=== PATIENT | female | born 1950 | race Caucasian/White ===

== ENCOUNTER 2016-09-23 16:47 | Inpatient (IN) | payer MEDICARE, MEDICAID, OTHER ==
[~2016-09-23] VITALS: Ht 182.9 cm; Wt 99.8 kg
[2016-09-23 18:30] VITALS: BP 168/93; PULSE 112; RESP 18; O2SAT 100
[2016-09-23] MEDS ORDERED: Alum-Mag Hydrox-Simeth 30 mL Suspension PO PRN (18:45)
[2016-09-23] MEDS ORDERED: Benzocaine-Menthol Lozenge 2/Pkg PO PRN (18:45)
[2016-09-23 20:19] LABS: Mean Corpuscular Hemoglobin 32.1 pg (27.0-35.0); Mean Corpuscular Volume 95.4 fL (81-100)
[2016-09-23] MEDS ORDERED: BUSP30TA2 PO (21:18)
[2016-09-23] MEDS ORDERED: CHOL200025 PO (21:19)
[2016-09-23] MEDS ORDERED: LEVO100T6 PO (21:20)
[2016-09-23] MEDS ORDERED: LITH300T26 PO ×2 (21:21→21:22)
[2016-09-23] MEDS ORDERED: OMEP20CA11 PO (21:22)
[2016-09-23] MEDS ORDERED: OXYB10TA6 PO (21:24)
[2016-09-23] MEDS ORDERED: PRAV10TA2 PO (21:25)
[2016-09-23] MEDS ORDERED: PREG100C PO (21:26)
[2016-09-23] MEDS ORDERED: QUET300T44 PO (21:33)
[2016-09-23] MEDS ORDERED: QUET200T PO (21:34)
[2016-09-23] MEDS ORDERED: DOCU-41 PO (21:35)
[2016-09-23] MEDS ORDERED: SENN1TAB90 PO (21:36)
--- NOTE | 2016-09-23 21:37 | NUR ---
ADMISSION NOTE Involuntary female admitted to unit @ 18:00 via stretcher from [facility] in [place]. She is IZAIAH'd on a 72-hr hold for grave disability. Pt. has a hx of bipolar disorder and lives independently, can typically grocery shop, drive, and care for herself but as of last Wednesday has been decompensating at home-- not showering, not eating, not sleeping, nonsensical, w/increased confusion and paranoia. ED records indicate she recently had an increase in Seroquel dosage and her Li level was 1.3 on 09/22. UA done on 09/22 was clear. Her current change in mentation is uncharacteristic for her, per ED records and her brother's report. V/S when arrived on unit were: 112 HR, 168/93 BP, 99.4 TEMP, 18 RR, 100% O2. She had received Ativan 2 mg an hr prior to arrival on unit. She was disorganized and incoherent during our assessment; rambling nonstop, nonsensical, unable to answer any questions or comply with staff's directions. She arrived in a loosened hospital gown opened in the back and was exposing herself, and could not dress herself in our hospital scrubs. Staff had to pull clothing onto her after much reassurance provided. She was fearful and paranoid to leave the multi-purp room where our admit interview was and finally agreed to hold staff's hands and was lead to her room. She toileted. Rang the call rubio many times. At one point she had squeezed an entire tube of toothpaste in her mouth. Allowed lab to draw blood work. She then rested in bed for the remainder of the shift. Medical hx: recent UTI April 2016, hypothyroid. Hx of acute cystitis.
--- NOTE | 2016-09-23 21:52 | NUR ---
OBSERVATIONS Pt arrived on unit at 1800. Pt was speaking rapidly in undecipherable, nonsensical sentences. Pt appeared very confused anxious and tremulous. Pt was unsteady upon standing and was assisted to her room by RNs. After pt was oriented to room and left to settle in, this MHA found the pt on her bed with a mouth full of toothpaste. Brought pt water to rinse out mouth after which she laid in bed to rest. Pt rested for the remainder of this MHA's shift. Maintained Q15 safety checks as directed.
--- NOTE | 2016-09-24 05:26 | NUR ---
nursing, nights, 11-7 s- i don't answer questions. i don't want anyone near me. o- slept [id number], used call light at 2330. most words unintelligible with some clear statements. slept [id number] and is currently lying quietly in bed. assessed q 15 minutes. a- interrupted/inadequate sleep, has difficulty expressing her needs, no apparent physical distress. p- monitor behavior/emotional state, quality, times and amount of sleep, use and effect of medication. gary
--- NOTE | 2016-09-24 05:30 | NUR ---
NOC OBS Pt called staff but unable to voice needs. Stated her mouth was dry but when asked what she would like to drink she stated she did not want to be asked question/would not answer them. Speech mumbled, disjointed and incoherent at times. Did drink fluids when presented with them but asked for staff to leave her room as she did not want people near her. Asleep [id number],100-345. Pt observed every 15 minutes as ordered.
[2016-09-24 12:16] VITALS: BP 154/84; PULSE 106
[2016-09-24] MEDS ORDERED: Tolterodine ER 2 mg ER24 Capsule PO SCH (14:04)
--- NOTE | 2016-09-24 14:14 | HP ---
[address] [address] HISTORY AND PHYSICAL PATIENT: CASE RENO : 1950 MR#: [id number] ADMIT: 09/23/2016 JOB ID: [id number] DATE OF SERVICE: 09/24/2016 IDENTIFICATION: The patient is a 66-year-old, single white female, currently living independently with her cat in an apartment. She has a car and drives. She is on Social Security disability for bipolar mood disorder. She has a supportive brother Naseem in the [place] area, and she lives in [place]. REASON FOR ADMISSION: Client transferred from [facility] ED on a 72-hour involuntary treatment hold for a rapid decline in her mental state with symptoms of babar and psychosis. HISTORY OF PRESENT ILLNESS: The patient presents for evaluation and treatment of babar and psychosis. I met with her for a 60-minute evaluation, and reviewed course and records kept by both [facility] in [place] and [facility] staff. Client's main issue is struggling with long-term bipolar mood disorder. The condition is chronic but she had a rapid decline per her brother over the past week with increasing symptoms of disorganized thought, paranoid thought and social isolation. She was refusing to eat and drink water and when she came to the emergency department, was severely dehydrated. At present, the condition is of a severe intensity manifesting with symptoms of distractibility, racing thoughts, poor sleep, paranoia, appearing to respond to internal stimuli, talking to herself and being unaware of the decline in her ability to attend to her activities of daily living. All the above symptoms are made worse by poor sleep and by not taking her medications regularly. She is currently presenting with significant emotional liability and cognitive deficits. She has impairment in judgment, insight, coping and reality testing. PSYCHIATRIC REVIEW OF SYSTEMS: Positive for babar and psychosis. Negative for depression, trauma, or substance abuse. PAST MEDICAL HISTORY: MEDICATIONS: 1. Seroquel reportedly increased from 200 to 300 mg at night. 2. BuSpar 30 twice a day. 3. Lyrica 100, 3 times a day. 4. Yetter 300 in the morning, 450 at night. 5. Levothyroxine 1 daily. 6. Omeprazole. 7. Oxybutynin. 8. Pravastatin. ALLERGIES: ABILIFY. ILLNESSES: Hypothyroidism, gastroesophageal reflux disease, fibromyalgia, glaucoma. FAMILY MEDICAL HISTORY: Unknown. PAST PSYCHIATRIC HISTORY: Client has been involuntarily detained four different times. For bipolar, she is followed by [facility] in [facility]. PSYCHOSOCIAL: Born in [place], [place]. She graduated from high school and attended four years at [employer] and getting a BA in education. HISTORY OF TRAUMA: Client denies. DRUG AND ALCOHOL: Client denies. WORK HISTORY: Client has been unable to work and has had mental illness for decades. LETHALITY: Client denies. SUICIDAL IDEATION: Previous suicide attempt. RELATIONSHIP HISTORY: Single. YAZIDI: [employer]. LEGAL HISTORY: None. PHYSICAL EXAMINATION: Vital signs: 154/84, pulse 106, respirations 16, afebrile. LABORATORY DATA: CBC with elevated WBC at 12.1. Yetter level 1.3. Liver electrolytes normal. MENTAL STATUS EXAMINATION: The client appeared neatly dressed but had poor eye contact. Her behavior was withdrawn. Attitude aloof and detached. Speech soft, monotone and mumbling. Mood scared. Affect congruent with high intensity. No emotional liability. Thought process, client unable to relate a coherent history. Her thought process is disorganized, and she appears to be responding to internal stimuli at times. Thought content significant for being confused about why she is here. She felt that she was taking her meds and doing well and was unaware of the rapid decline that her brother described with isolation, paranoia and disoriented thoughts. She was somewhat suspicious during my evaluation but did not endorse any overt paranoid or grandiose delusions. Client was alert and oriented to person, place, and date. She spoke at length about the president. Her memory was mildly impaired. Attention and concentration mildly impaired. Insight and judgment impaired. Impulse control highly contained but rigid. She is having a difficult time handling impulses of fear and hunger. Reality testing is moderately impaired. Competence to handle current stress, is currently being overwhelmed. IMPRESSION: The patient is a 66-year-old, single white female with what sounds like bipolar mood disorder for decades that has been relatively well managed. For unclear reasons, her brother reported a rapid decline in her thought process and ability to attend to activities of daily living over the past week. As a result, she has not been eating, not been drinking and when she came to the ED, was severely dehydrated and required IV fluids. Despite having care at the [facility] ED, she was continued to be nonsensical in her thought, appearing to respond to internal stimuli and showing multiple symptoms of babar including distractibility, racing thoughts, poor sleep and poor appetite. There is a reference in the chart that her Seroquel was increased from 200 to 300 recently and that this might be part of the confusion. I was unable to identify any particular stressor that might have been giving the patient difficulty. She was detained on a 72-hour involuntary treatment hold at [facility], and I will file for a [address] DIAGNOSES: AXIS I Bipolar mood disorder, manic, with psychotic features. AXIS II Defer. AXIS III 1. Hypothyroidism. 2. Gastroesophageal reflux disease. 3. Fibromyalgia. 4. Glaucoma. AXIS IV Unknown. AXIS V Global Assessment of Functioning equal to 30. PLAN: Recommend client be admitted to our unit and be provided with a high degree of safety through the structure and active adult engagement she will receive here. Will have her participate in one-to-one unit and group activities focused on improving her coping skills and reality-based thinking. I will work with her with her psych meds. In the meantime, we will decrease Seroquel to 200 mg h.s., continue Lyrica at 100 three times a day, decrease BuSpar to 10 twice a day and add Klonopin 0.5 mg b.i.d. for fairly severe anxiety with a heart rate over 100. Again, client on a 72-hour involuntary treatment hold. Will attempt to get a [address]
--- NOTE | 2016-09-24 18:52 | NUR ---
Nursing Note Days [id number] S. I am feeling dizzy and wobbly. I am feeling very irritable. O. Patient tremulous, holding to staff when walking. Requesting word search puzzles. Response delayed/hesitant with responses. Denies SI/HI, depression, anxiety. A. Appears anxious, reports fearful do to noise/activity on unit. P. Continue to monitor for response to treatment. 15 min checks for safety. Follow plan of care.
--- NOTE | 2016-09-24 19:09 | NUR ---
Bag Shop Worker/Counselor: S: "I need someone to look after my cat, please call my brother." O: Patient only slept 4.25+ hours last night as per staff. She denies S/I and H/I. She also denies auditory and visual hallucinations. When asked her mood, patient stated, "Jumpy." A: Patient is cooperative, withdrawn, fearful disorganized, responding to internal stimuli, confused. P: Follow care plan, coordinate out-patient providers, monitor behavior.
--- NOTE | 2016-09-24 19:19 | NUR ---
Obs Dayshift Pt is restless, slightly pressured speech, hopeless, helpless, confused, mumbling. Pt is able to get up on her own and walk down the gorman when staff is not around to assist. Pt is sitting out in the milieu during free times, but goes back into her room when peers get to loud and active. Pt has good ADL's, Good meals
[2016-09-24] MEDS: BusPIRone 15 mg Dividose Tablet PO SCH (20:46)
--- NOTE | 2016-09-25 04:57 | NUR ---
Nursing Noc s/o- has appeared to sleep after 2129 until 2329, and back to sleep at 0030 during q 15 minute assessments. Spent short time out in DR watching movie quietly but not able to converse with service writer. a- no apparent distress. p- monitor behavior/emotional state, quality, times and amount of sleep, use and effect of medication.
[2016-09-25] MEDS ORDERED: OXYBUTYNIN CHLORIDE 10 MG PO SCH (08:30)
[2016-09-25] MEDS: Pantoprazole 40 mg ER24 Tablet PO SCH (08:51)
[2016-09-25] MEDS: BusPIRone 15 mg Dividose Tablet PO SCH ×2 (08:52→21:16)
[2016-09-25] MEDS: Tolterodine ER 2 mg ER24 Capsule PO SCH (08:52)
[2016-09-25 10:00] VITALS: BP 121/77; PULSE 97; RESP 18
--- NOTE | 2016-09-25 12:31 | NUR ---
Nursing: Day shift: S: I am so upset with all this noise. I have pain and need something for it. I can't rate it. I just feel discomfort. I had a strange dream before I came here. They must have thought it was an emergency to transfer me from [place] to [place]. It's the Bipolar, I think. I'm depressed I had to come here. O: Yenny has spent most of the shift in her room. Isolates to keep from away from peer interactions in the dining room that she finds stressful. She comes out for meals. Smiles readily. Speaks in a coherent manner. Thoughts seem organized and logical. Makes witty responses and slightly laughs. ("I make others laugh but inside I am not laughing.") Denies suicidal ideation. PRN medication: At 1200, Milk of Magnesia 10 ml for constipation, Tylenol 650 mg for generalized pain (unable to rate), and Clonazepam 0.5 mg for anxiety. Evaluation: MOM resulted in bowel movement. Tylenol: "just a bit better, maybe," Clonazepam: 'I feel that the my anxiety is being helped by the medicine." A: Anxious. Isolative. Generalized pain. Thoughts do not seem disorganized today. Addendum: 09/25/16 at 1325 by NATALIIA TOLEDO RN Amended: Links added.
--- NOTE | 2016-09-25 14:28 | PCM.PNPSY ---
Subjective Date of Service Sep 25, 2016 Subjective I spent 30 minutes both reviewing treatment plan with clinical team, interviewing the patient and providing supportive/educational psychotherapy. I spent more than 50% of the time counseling the patient. I reviewed the treatment plan with the patient and discussed options available including the potential risks, benefits and side effects. Yenny reports a marked improvement mood but she is very anxious about the degree of emotional tension on the unit. We talked about different self-care strategies she could use to minimize her exposure to other patients who may be going through a turbulent emotional time. Staff reports that she has been active and participating well in one-to-one unit and group activities. She slept 8 hours and denies depression or psychotic symptoms review. Her thought processing is much improved today. She denies medication side effects. Patient was able to identify her medications and what they were used to treat. Current Medications Current Medications Buspirone HCl 10 mg BID PO Last administered on 09/25/16 08:52; Admin Dose 10 MG; Start 09/24/16 at 20:30 Levothyroxine Sodium 100 mcg DAILY PO Last administered on 09/25/16 08:52; Admin Dose 100 MCG; Start 09/25/16 at 08:30 Lavina Carbonate 300 mg MORNING PO Last administered on 09/25/16 08:52; Admin Dose 300 MG; Start 09/25/16 at 08:30 Lavina Carbonate 450 mg HS PO Last administered on 09/24/16 20:48; Admin Dose 450 MG; Start 09/24/16 at 21:00 Pantoprazole 40 mg 0630 PO Last administered on 09/25/16 08:51; Admin Dose 40 MG; Start 09/25/16 at 06:30 Pravastatin Sodium 10 mg HS PO Last administered on 09/24/16 20:46; Admin Dose 10 MG; Start 09/24/16 at 21:00 Pregabalin 100 mg TID PO Last administered on 09/25/16 08:52; Admin Dose 100 MG ; Start 09/24/16 at 14:30 Quetiapine Fumarate 200 mg HS PO Last administered on 09/24/16 20:45; Admin Dose 200 MG; Start 09/24/16 at 21:00 Tolterodine Tartrate 2 mg MORNING PO Last administered on 09/25/16 08:52; Admin Dose 2 MG; Start 09/25/16 at 08:30 Mental Status Exam Appearance: Neat/well groomed Attitude: Pleasant, Cooperative Behavior: Overtly anxious Affect: Labile Mood: Anxious, Fearful Thought Process/Associations: Other (disorganized) Speech Production: Normal Speech Rate: Normal Speech Articulation: Normal Thought Content: Negativistic Danger to Self/Suicidal Ideati: None Danger to Others: None Consciousness: Hyper-vigilant Orientation: Person, Place, Date, Situation Memory: Grossly Intact Estimate Intellectual Function: Average Basis for IQ estimate: Awareness current events, Word use/vocabulary, Educational history Attention/Concentration & Cogn: Impaired Insight: Limited Judgement: Limited Result Diagram: 09/23/16200109/23/162001 Mental Health Plan The patient is a 66-year-old, single white female struggling with bipolar mood disorder for decades. Recently she has been well managed. For unclear reasons, her brother reported a rapid decline in her thought process and ability to attend to activities of daily living over the past week. As a result, she had not been eating, not been drinking and when she came to the ED, was severely dehydrated and required IV fluids. Despite having care at the [facility] ED, she continued to be nonsensical in her thought, appearing to respond to internal stimuli and showing multiple symptoms of babar including distractibility, racing thoughts, poor sleep and poor appetite. She was transferred to our unit for evaluation and treatment. There is a reference in the chart that her Seroquel was increased from 200 to 300 recently and that this might be part of the confusion. I was unable to identify any particular stressor that might have been giving the patient difficulty [place] AXIS I Bipolar mood disorder, manic, with psychotic features. AXIS II Defer. AXIS III 1. Hypothyroidism. 2. Gastroesophageal reflux disease. 3. Fibromyalgia. 4. Glaucoma. AXIS IV Unknown. AXIS V Global Assessment of Functioning equal to 30. Medications Treatments Patient is being provided with a high degree of safety through the structure and active adult engagement. We will focus on developing improved coping skills and identifying stressors that may have led to current episode. We will attempt to: Integrate into therapeutic groups, milieu and individual therapy. Maintain in a closely monitored and structured unit Provide low-stimulation environment Obtain collateral data to assist in treatment planning Assess degree of lability of affect and impulse control Complete safety plan Decrease frequency of relapse and need for re-hospitalization Denies thoughts of harm to self and/or others Establish a consistent sleep pattern Medication effective in stabilization of mood and/or thought process Reduce the risk of imminent harm to self and/or others by providing a safe environment Tolerates medication without side effects Patient will be on the following psychiatric medications: Seroquel to 200 mgh.s. Lyrica at 100 three times a day BuSpar to 10 twice a day Klonopin 0.5 mg b.i.d Address patient's legal status Patient is on a 72 hour involuntary treatment hold that was continued until next Wednesday by the defense Patient will be given the opportunity to talk to her university relations vice president and the windshield installer Wednesday Disposition: Home Franklin Stroud MD Sep 25, 2016 14:28
--- NOTE | 2016-09-25 19:02 | NUR ---
Pageant Director/Counselor: S: "I feel like pulling my hair out because of some of these patients." O: Patient slept 7 hours last night as per staff. She denies S/I and H/I. She also denies auditory and visual hallucinations. Depression is "not really." Anxiety is "a little bit." When asked her mood, patient stated, "Still jumpy." A: Patient is cooperative, withdrawn, fearful, a little less disorganized, fair insight, fair judgment. P: Follow care plan, coordinate out-patient providers.
[2016-09-25] MEDS: LORazepam 2 mg Tablet PO PRN (21:19)
--- NOTE | 2016-09-25 21:58 | NUR ---
Observations 0900 to 2130 Pt affect and mood was flat, emotional, isolative, withdrawn and fearful. Pt appears to be preoccupied. Pt speech and eye contact was ok. Pt attended meals in D.R. and ate approximately 75% of his meals. Pt maintained behavior throughout the shift. Pt spent a majority of the shift in her room due to being scared of her peers. Pt was polite and cooperative. Pt watched a little bit og TV during the day. Pt declined going in group room to do arts and crafts. Pt declined to participate in unit activities. Pt was observed every 15 minutes throughout the shift as ordered.
--- NOTE | 2016-09-25 22:51 | NUR ---
Nurses Note Evening Patient has been extremely anxious and fearful on the unit returning to her room in tears often. "I'm scared,it's too loud here."Patient responds to support. Will maintain q 15min. checks for safety,support. Addendum: 09/25/16 at 2310 by STEPHENIE KEYES RN Amended: Links added.
--- NOTE | 2016-09-26 06:06 | NUR ---
Nursing Note 7pm to 7am Optician Apprentice Dispensing Pt very anxious at start of shift due to loud outbursts of peers on the unit. she reported " I came here to relax and I can't . I am very afraid". Pt reports racing thoughts and anxiety 03/09. Pt given Ativan 2mg po prn with HS Meds. Order obtained for Latanoprost eye drops which pt takes at home for glaucoma. Pt slept soundly throughout the night. Monitored pt with q15 minute checks for safety, location and accountability.
[2016-09-26] MEDS: Pantoprazole 40 mg ER24 Tablet PO SCH (07:33)
[2016-09-26] MEDS: BusPIRone 15 mg Dividose Tablet PO SCH ×2 (07:34→20:40)
[2016-09-26] MEDS: Tolterodine ER 2 mg ER24 Capsule PO SCH (07:35)
[2016-09-26 10:11] VITALS: BP 104/73; PULSE 101; RESP 16
[2016-09-26] MEDS: Magnesium Hydroxide 10 mL Oral Concentration PO PRN (10:16)
--- NOTE | 2016-09-26 11:53 | PCM.PNPSY ---
Subjective Date of Service Sep 26, 2016 Subjective I spent 30 minutes both reviewing treatment plan with clinical team, interviewing the patient and providing supportive/educational psychotherapy. I spent more than 50% of the time counseling the patient. I reviewed the treatment plan with the patient and discussed options available including the potential risks, benefits and side effects. Yenny reports continued improvement mood but she is still anxious about the degree of emotional tension on the unit. We reviewed different self-care strategies she could use to minimize her exposure to other patients who may be going through a turbulent emotional time. Staff reports that she has been active and participating well in one-to-one unit and group activities. She slept 7 hours and denies depression or psychotic symptoms review. Her thought processing is much improved today. She denies medication side effects. Patient was able to identify her medications and what they were used to treat. Current Medications Current Medications Buspirone HCl 10 mg BID PO Last administered on 09/26/16 07:34; Admin Dose 10 MG; Start 09/24/16 at 20:30 Latanoprost 1 drop HS BOTH_EYES Last administered on 09/26/16 07:33; Admin Dose 1 DROP; Start 09/26/16 at 00:18 Levothyroxine Sodium 100 mcg DAILY PO Last administered on 09/26/16 07:35; Admin Dose 100 MCG; Start 09/25/16 at 08:30 [place] Carbonate 300 mg MORNING PO Last administered on 09/26/16 07:35; Admin Dose 300 MG; Start 09/25/16 at 08:30 [place] Carbonate 450 mg HS PO Last administered on 09/25/16 21:17; Admin Dose 450 MG; Start 09/24/16 at 21:00 Pantoprazole 40 mg 0630 PO Last administered on 09/26/16 07:33; Admin Dose 40 MG; Start 09/25/16 at 06:30 Pravastatin Sodium 10 mg HS PO Last administered on 09/25/16 21:18; Admin Dose 10 MG; Start 09/24/16 at 21:00 Pregabalin 100 mg TID PO Last administered on 09/26/16 07:35; Admin Dose 100 MG ; Start 09/24/16 at 14:30 Quetiapine Fumarate 200 mg HS PO Last administered on 09/25/16 21:19; Admin Dose 200 MG; Start 09/24/16 at 21:00 Tolterodine Tartrate 2 mg MORNING PO Last administered on 09/26/16t 07:35; Admin Dose 2 MG; Start 09/25/16 at 08:30 Mental Status Exam Vital Signs Vital Signs Date Time Temp Pulse Resp B/P Pulse Ox O2 Delivery O2 Flow Rate FiO2 09/26/16 10:11 36.8 101 16 104/73 Appearance: Neat/well groomed Attitude: Pleasant, Cooperative Behavior: Overtly anxious Affect: Well Modulated/Appropriate, Flat Mood: Anxious Thought Process/Associations: Goal Directed Speech Production: Normal Speech Rate: Normal Speech Articulation: Normal Thought Content: Negativistic Danger to Self/Suicidal Ideati: None Danger to Others: None Consciousness: Hyper-vigilant Orientation: Person, Place, Date, Situation Memory: Grossly Intact Estimate Intellectual Function: Average Basis for IQ estimate: Awareness current events, Word use/vocabulary, Educational history Attention/Concentration & Cogn: Impaired Insight: Limited Judgement: Limited Result Diagram: 09/23/16200109/23/162001 Mental Health Plan The patient is a 66-year-old, single white female struggling with bipolar mood disorder for decades. Recently she has been well managed. For unclear reasons, her brother reported a rapid decline in her thought process and ability to attend to activities of daily living over the past week. As a result, she had not been eating, not been drinking and when she came to the ED, was severely dehydrated and required IV fluids. Despite having care at the [facility] ED, she continued to be nonsensical in her thought, appearing to respond to internal stimuli and showing multiple symptoms of babar including distractibility, racing thoughts, poor sleep and poor appetite. She was transferred to our unit for evaluation and treatment. There is a reference in the chart that her Seroquel was increased from 200 to 300 recently and that this might be part of the confusion. I was unable to identify any particular stressor that might have been giving the patient difficulty Yenny appears to be tolerating medications well today 09/26/2016. She appears to be making gradual steady progress. [place] AXIS I Bipolar mood disorder, manic, with psychotic features. AXIS II Defer. AXIS III 1. Hypothyroidism. 2. Gastroesophageal reflux disease. 3. Fibromyalgia. 4. Glaucoma. AXIS IV Unknown. AXIS V Global Assessment of Functioning equal to 35. Medications Treatments Patient is being provided with a high degree of safety through the structure and active adult engagement. We will focus on developing improved coping skills and identifying stressors that may have led to current episode. We will attempt to: Integrate into therapeutic groups, milieu and individual therapy. Maintain in a closely monitored and structured unit Provide low-stimulation environment Obtain collateral data to assist in treatment planning Assess degree of lability of affect and impulse control Complete safety plan Decrease frequency of relapse and need for re-hospitalization Denies thoughts of harm to self and/or others Establish a consistent sleep pattern Medication effective in stabilization of mood and/or thought process Reduce the risk of imminent harm to self and/or others by providing a safe environment Tolerates medication without side effects Patient will be on the following psychiatric medications: Seroquel to 200 mgh.s. Lyrica at 100 three times a day BuSpar to 10 twice a day Change Klonopin to 0.25 mg b.i.d Address patient's legal status Patient is on a 72 hour involuntary treatment hold that was continued until next Wednesday by the defense Patient will be given the opportunity to talk to her boatwright and the trolley collector Wednesday Disposition: Franklin Peterson MD Sep 26, 2016 11:53
--- NOTE | 2016-09-26 14:06 | NUR ---
Dietitian Assistant./ c.m. S.:"I'm trying to have a better day." O.: met with pt. to discuss her progress. She slept "better" last night "but I had sleeping aid because there was a lot of commotion yesterday in the evening. She denied SI/HI, denied AH/VH or paranoid/delusional thoughts. She rated depression at 4-5/10 - "it's hard to be in a place where people are in control of my life." She complained about feeling restless and anxious - "I'm very itchy for go, go, go. It's hard to sit. I want to move all the time." She was in and out of her room sitting or talking to a selective female peer. Laborer [employer] encouraged pt. to speak with MD about her restlessness. A.: pt. is cooperative, pleasant, looks very restless. P.: monitor behavior, follow care plan.
--- NOTE | 2016-09-26 16:23 | NUR ---
Nursing Dayshift: S: "It's just so loud on this unit that I don't think I can get any better." O: Patient in bed resting much of the shift. States she stays in her room due to the above comment. Out for meals and snacks with a good appetite. Talkative on approach. Smiles during interaction. Patient's brother visited. Both stated having a good visit. Admits to "high" anxiety today. Depression "more anxiety than depression." Denies harmful thoughts and hallucinations. A: Isolative. Pleasant on approach. P: CPOC. Monitor mood and behavior.
[2016-09-26] MEDS: LORazepam 2 mg Tablet PO PRN (20:47)
--- NOTE | 2016-09-27 04:48 | NUR ---
ROSITA OBS Pt was on unit including watching TV some this evening. She was out for evening group but did not want to participate or comment due to fear of peers on unit. Able make needs known and voice concerns. Asleep at 2215. Pt observed every 15 minutes as ordered.
--- NOTE | 2016-09-27 05:37 | NUR ---
nursing, nights, 11-7 s/o- has appeared to sleep after 2214 during q 15 minute assessments. a- no apparent distress. p- monitor behavior/emotional state, quality, times and amount of sleep, use and effect of medication. gary
[2016-09-27] MEDS: Pantoprazole 40 mg ER24 Tablet PO SCH (06:39)
[2016-09-27] MEDS: Tolterodine ER 2 mg ER24 Capsule PO SCH (09:02)
[2016-09-27] MEDS: BusPIRone 15 mg Dividose Tablet PO SCH ×2 (09:02→21:08)
--- NOTE | 2016-09-27 11:34 | NUR ---
Nursing Dayshift: S: "I think I'm on my way to getting better." O: Patient verbalizing improved mood. Rates anxiety and depression both at a 5/10. Denies harmful thoughts and hallucinations. Brightens with interaction. Eating well at meals. Out of her room for meals and snacks. A: Pleasant during interaction. Alert. P: CPOC. Monitor mood and behavior.
[2016-09-27 12:25] VITALS: BP 114/75; PULSE 96; RESP 16
--- NOTE | 2016-09-27 13:18 | PCM.PNPSY ---
Subjective Date of Service Sep 27, 2016 Subjective I spent 30 minutes both reviewing treatment plan with clinical team, interviewing the patient and providing supportive/educational psychotherapy. I spent more than 50% of the time counseling the patient. I reviewed the treatment plan with the patient and discussed options available including the potential risks, benefits and side effects. Yenny reports continued improvement mood but she remains highly anxious and is triggered by the degree of emotional tension on the unit. We reviewed different self-care strategies she could use to minimize her exposure to other patients who may be going through a turbulent emotional time. Staff reports that she has been active and participating well in one-to-one unit and group activities. She slept 8 hours and denies depression or psychotic symptoms review. Her thought processing is much improved today. She denies medication side effects. Patient was able to identify her medications and what they were used to treat. Current Medications Current Medications Latanoprost 1 drop HS BOTH_EYES Last administered on 09/26/16t 20:42; Admin Dose 1 DROP; Start 09/26/16 at 00:18 Mental Status Exam Appearance: Neat/well groomed Attitude: Pleasant, Cooperative Behavior: Overtly anxious Affect: Well Modulated/Appropriate, Flat Mood: Anxious Thought Process/Associations: Goal Directed Speech Production: Normal Speech Rate: Normal Speech Articulation: Normal Thought Content: Negativistic Danger to Self/Suicidal Ideati: None Danger to Others: None Consciousness: Hyper-vigilant Orientation: Person, Place, Date, Situation Memory: Grossly Intact Estimate Intellectual Function: Average Basis for IQ estimate: Awareness current events, Word use/vocabulary, Educational history Attention/Concentration & Cogn: Impaired Insight: Limited Judgement: Limited Result Diagram: 09/23/16200109/23/16 2002 Mental Health Plan The patient is a 66-year-old, single white female struggling with bipolar mood disorder for decades. Recently she has been well managed. For unclear reasons, her brother reported a rapid decline in her thought process and ability to attend to activities of daily living over the past week. As a result, she had not been eating, not been drinking and when she came to the ED, was severely dehydrated and required IV fluids. Despite having care at the [facility] ED, she continued to be nonsensical in her thought, appearing to respond to internal stimuli and showing multiple symptoms of babar including distractibility, racing thoughts, poor sleep and poor appetite. She was transferred to our unit for evaluation and treatment. There is a reference in the chart that her Seroquel was increased from 200 to 300 recently and that this might be part of the confusion. I was unable to identify any particular stressor that might have been giving the patient difficulty Yenny appears to be tolerating medications well today 09/26/2016. She appears to be making gradual steady progress and will likely be ready for discharge Over the next 72 hours. [place] AXIS I Bipolar mood disorder, manic, with psychotic features. AXIS II Defer. AXIS III 1. Hypothyroidism. 2. Gastroesophageal reflux disease. 3. Fibromyalgia. 4. Glaucoma. AXIS IV Unknown. AXIS V Global Assessment of Functioning equal to 35. Medications Treatments Patient is being provided with a high degree of safety through the structure and active adult engagement. We will focus on developing improved coping skills and identifying stressors that may have led to current episode. We will attempt to: Integrate into therapeutic groups, milieu and individual therapy. Maintain in a closely monitored and structured unit Provide low-stimulation environment Obtain collateral data to assist in treatment planning Assess degree of lability of affect and impulse control Complete safety plan Decrease frequency of relapse and need for re-hospitalization Denies thoughts of harm to self and/or others Establish a consistent sleep pattern Medication effective in stabilization of mood and/or thought process Reduce the risk of imminent harm to self and/or others by providing a safe environment Tolerates medication without side effects Patient will be on the following psychiatric medications: Seroquel to 200 mgh.s. Lyrica at 100 three times a day BuSpar to 10 twice a day Klonopin to 0.25 mg b.i.d Address patient's legal status Patient is on a 72 hour involuntary treatment hold that was continued until next Wednesday by the defense Patient will be given the opportunity to talk to her hydrographic surveyor and the oncology technician Wednesday Disposition: Home Franklin Stroud MD Sep 27, 2016 13:18
--- NOTE | 2016-09-27 15:23 | NUR ---
Pc Tech./ c.m. S.:"I feel trapped... I'm a little jumpy. I feel very tired. I'm very paranoid. I feel like everybody is watching me." O.: met with pt. in a private room. She slept "very good" last night. She had "ok" visit with her brother but she "was disappointed because he didn't bring me what I wanted." She said that she had "a good conversation with him." She denied SI/HI, denied AH/VH. She felt paranoid about staff here and other peers. She believed that people were seeing her as "a child" - "I'm always acting childish and I don't know why." She felt "a little dopy" today and complained about dry mouth. She said that it was hard for her to focus. She rated depression at 3-4/10 - "it is same as when I came here". She rated anxiety at 4/10 at this time. She was in and out of her room sitting in a Dining room or TV area. She complained about unsteady gait. She is keeping to herself most of the time. A.: pt. is cooperative, quiet, looks sleepy. She has a flat affect and a slurred speech. P.: monitor behavior, monitor for safety, encourage pt. to participate in the unit activities; follow care plan.
--- NOTE | 2016-09-27 18:10 | NUR ---
Observations [id number] Pt was asleep upon start of shift. She appears to be anxious and nervous around other patients. She made a few comments to this marketing underwriter regarding how she doesn't like some individuals on the unit- "they just make me so nervous and upset." Pt spent the majority of her day in her room, resting and sleeping. She did make an effort to put herself out of her comfort zone, as noticed in the evening while waiting for dinner pt stated that "I came out here to try, I know it's not healthy for me to isolate all the time." Pt did not participate in any groups and was not very social. She attended all meals, eating 100%. Pt was observed every 15 minutes of shift as directed.
--- NOTE | 2016-09-28 06:28 | NUR ---
Nursing 7p-7a Pt has isolated in her room all shift. Took scheduled medication without difficulty. Adequate sleep with no noted distress or awakening per protocol. Total sleep 8+ hours.
[2016-09-28 09:04] VITALS: BP 137/77; PULSE 92; RESP 16
[2016-09-28] MEDS: BusPIRone 15 mg Dividose Tablet PO SCH ×2 (10:41→21:02)
[2016-09-28] MEDS: Pantoprazole 40 mg ER24 Tablet PO SCH (10:41)
[2016-09-28] MEDS: Tolterodine ER 2 mg ER24 Capsule PO SCH (10:41)
--- NOTE | 2016-09-28 17:10 | NUR ---
Observations [id number] Pt was asleep upon start of shift. Pt informed this personal lines underwriter that she struggles with incontinence and requested a new pair of scrubs. Pt declined depends or any incontinence items. She spent the majority of her day in her room, only coming out for meals. Pt ate 100% of meals. She did not attend groups. Pt made statements regarding her anxiety regarding court and that she feels ready to go home. Pt declines to shower here saying she'd rather shower at home. Pt also expressed concerns about other patients on the unit and feeling safe. Pt was observed every 15 minutes of shift as directed.
--- NOTE | 2016-09-28 20:48 | NUR ---
Nursing; Day shift: Yenny spent most of the day in her room, away from peers in the dining room whose behavior was intimidating. She was pleasant on approach. Is aware of upcoming court tomorrow. Took medication as scheduled. Requested and received Tylenol for generalized pain at 1833. Effectiveness to be assessed. No other complaints or requests.
[2016-09-28 21:04] LABS: APPEARANCE,URINE CLEAR (CLEAR,HAZY); COLOR,URINE STRAW (YELLOW)
[2016-09-28 21:07] LABS: OCCULT BLOOD,URINE NEGATIVE (NEGATIVE); UROBILINOGEN,URINE NORMAL (NORMAL)
--- NOTE | 2016-09-29 00:28 | PCM.PNPSY ---
Subjective Date of Service September 28, 2016 Subjective The patient reports plan to return to her home in [place]. She is still mystified by her decompensation and reports that she believes that she was medication adherent. "I had a really weird dream... with sparklies... then I was here." She still has difficulty formulating her thoughts and ideas. She reports her mood as discouraged. She states that she will return to have followup with Dr. Girffith. She denied side effects, but mild cogwheeling was noted in her left arm. Sleep: 8 hours Appetite: "hungry" Suicidal and homicidal ideation: denies Auditory hallucinations/Visual hallucinations: reports last on the day of admission. Other Psychotic Symptoms: disorganization as above. Anxiety: 02/07 Depression: 10/07 Current Medications Current Medications Benztropine Mesylate 1 mg HS PO Last administered on 09/28/16t 21:03; Admin Dose 1 MG; Start 09/28/16 at 21:00 Mental Status Exam Appearance: Neat/well groomed Attitude: Pleasant, Cooperative Behavior: Overtly anxious Affect: Restricted Mood: Dysthymic, Anxious Thought Process/Associations: Goal Directed, Other Speech Production: Normal Speech Rate: Normal Speech Articulation: Normal Thought Content: Negativistic Danger to Self/Suicidal Ideati: None Danger to Others: None Hallucinations: Auditory (Denies), Visual (Denies) Consciousness: Hyper-vigilant Orientation: Person, Place, Date, Situation Memory: Grossly Intact Estimate Intellectual Function: Average Basis for IQ estimate: Awareness current events, Word use/vocabulary, Educational history Attention/Concentration & Cogn: Impaired Insight: Limited Judgement: Limited Result Diagram: 09/23/16200109/23/16 2002 Mental Health Plan The patient is a 66-year-old, single white female with a reported history of bipolar disorder for decades that has been relatively well managed until recently. Her brother reported a rapid decline in her thought process and ability to attend to activities of daily living over the past week prior to admission. As a result, she has not been eating, not been drinking and when she came to the ED, was severely dehydrated and required IV fluids. Despite having care at the [facility] ED, she continued to be nonsensical in her thoughts, appearing to respond to internal stimuli and showing multiple symptoms of babar including distractibility, racing thoughts, poor sleep and poor appetite. There is a reference in the chart that her Seroquel was increased from 200 to 300. There were no clearly identifiable stressors. The patient was seen and detained by the [facility]. Despite having a diagnosis of bipolar disorder, she reports inter-episode symptoms but could not describe fully. The patient appears to be responding to treatment but is still quite anxious, moderately disorganized and confused. [place] AXIS I Bipolar mood disorder, manic, with psychotic features vs. schizoaffective disorder AXIS II Defer. AXIS III 1. Hypothyroidism. 2. Gastroesophageal reflux disease. 3. Fibromyalgia. 4. Glaucoma. AXIS IV Unknown. AXIS V Global Assessment of Functioning equal to 35. Medications Seroquel to 200 mgh.s. Lyrica 100 three times a day BuSpar 10 twice a day Klonopin 0.25 mg b.i.d Treatments 1. The patient is admitted to the inpatient unit and will be provided a safe and secure environment. 2. The patient is denying current active suicidality and is not in need of a one-to-one at this time. 3. The patient is encouraged to participate with group and milieu activities. 4. The patient will be seen by the treatment team on a daily basis to assess symptoms, side effects and response to treatment. 5. Continue current medication except increase buspirone to 30mg twice daily for anxiety. 6. The patient will likely benefit from an LRO on disharge. 8. Anticipated length of stay is 3-5 days. Butch Wheeler MD September 28, 2016 22:21
--- NOTE | 2016-09-29 05:58 | NUR ---
Nursing 7p-7a Pt pleasant and cooperative with care. She spent her evening out in the dining room looking at a book. She smiles and is responsive upon approach. Took scheduled medication. No complaints made this evening. She retired to her room and appeared asleep by 2315 with no noted distress or awakening per protocol checks. Total sleep 7+ hours.
--- NOTE | 2016-09-29 06:02 | NUR ---
Nursing Note 11pm to 7am Photo Colorer Pt asleep at start of shift and remained asleep without interruption. No prns given this shift. Monitored pt. with q15 minute face checks for safety location and accountability
[2016-09-29 09:48] VITALS: BP 142/77; PULSE 89; RESP 17
[2016-09-29] MEDS: Pantoprazole 40 mg ER24 Tablet PO SCH (09:52)
[2016-09-29] MEDS: BusPIRone 15 mg Dividose Tablet PO SCH ×2 (09:53→20:26)
[2016-09-29] MEDS: Tolterodine ER 2 mg ER24 Capsule PO SCH (09:54)
--- NOTE | 2016-09-29 12:49 | NUR ---
Logistics Analytics Manager./ c.m. S.:"I'm up and down. It's hard to be here." O.: met with pt. in the Dining room. She was sitting alone in a TV area working on a word puzzle. She complained about poor sleep last night. "I'm not sleeping that well. I think I need to ask for a sleeping aid." She complained about being here but she said that she would follow all rules. She also complained about pain - "I have a lot of pain issues but I'm trying to deal with them." She denied SI/HI, denied AH/VH. She rated depression at 5/10 - "I am depressed." She rated anxiety at 9/10 because she was here. She is hoping to go home as soon as possible. A.: pt. is cooperative, quiet, isolative, passive, has a flat affect and a slow speech. P.: monitor behavior, work on follow up; follow care plan.
[2016-09-29] MEDS: Magnesium Hydroxide 10 mL Oral Concentration PO PRN (17:00)
--- NOTE | 2016-09-29 17:35 | NUR ---
Observations [id number] Pt was asleep upon start of shift. She had court today, which appeared to go well. Pt's mood was improved today then observed in previous shifts, as she spent more time in the common areas, even participating in group. Pt enjoyed listening to Oldies and reminiscing about her past. She does appear to struggle with loud noises and crowds, and there are certain patients that she stated make her nervous. Pt also spent time on the patio getting fresh air. Pt attended all meals, eating 100%. She is polite and interacts with staff intermittently. Pt stated that she is cranky and apologized a few times. She was observed every 15 minutes of shift as directed.
--- NOTE | 2016-09-29 18:33 | NUR ---
Nursing: Day shift: 699 - 1899 S: I can't stand it when people are shouting out there. I had to come to my room. I'd be better off at home But I have to be here. But I'm doing better. I may get to go on . I just can't sleep. And that is a problem. Even though staff think I slept, I have been awake. O: Yenny is pleasant on approach. She spends time on the open unit until there is conflict and then goes off to her room. No statements indicative of psychosis. In fact, stated, "I was out of it when I came in. Now I'm better. " ADL's: Was given commode frame to put over low toilet which she says causes discomfort when she tries to get up an down from it. Yenny states that it works better. A: Forward thinking. P: Careful monitoring of pt for sleep during night. Addendum: 09/29/16 at 1846 by NATALIIA TOLEDO RN Amended: Links added.
--- NOTE | 2016-09-29 22:21 | PCM.PNPSY ---
Subjective Date of Service September 29, 2016 Subjective The patient reports having some ups and downs but that she was talking to a lot of people and felt that she was making progress. The patient states that she stayed in bed a long time today and it made it more difficult to ambulate. She denied side effects and unsure if benztropine helpful. Sleep: 7+ hours "I slept way less than that" Appetite: "hungry" Suicidal and homicidal ideation: denies Auditory hallucinations/Visual hallucinations: reports last on the day of admission. Other Psychotic Symptoms: disorganization improved today Anxiety: "up" Depression: "even" Current Medications Current Medications Benztropine Mesylate 1 mg HS PO Last administered on 09/29/16 20:26; Admin Dose 1 MG; Start 09/28/16 at 21:00 Buspirone HCl 30 mg BID PO Last administered on 09/29/16 20:26; Admin Dose 30 MG ; Start 09/29/16 at 08:30 Quetiapine Fumarate 50 mg DAILY PO Last administered on 09/29/16 14:08; Admin Dose 50 MG; Start 09/29/16 at 14:00 Mental Status Exam Appearance: Neat/well groomed Attitude: Pleasant, Cooperative Behavior: Overtly anxious Affect: Restricted Mood: Dysthymic, Anxious Thought Process/Associations: Goal Directed, Other Speech Production: Normal Speech Rate: Normal Speech Articulation: Normal Thought Content: Negativistic Danger to Self/Suicidal Ideati: None Danger to Others: None Hallucinations: Auditory (Denies), Visual (Denies) Consciousness: Hyper-vigilant Orientation: Person, Place, Date, Situation Memory: Grossly Intact Estimate Intellectual Function: Average Basis for IQ estimate: Awareness current events, Word use/vocabulary, Educational history Attention/Concentration & Cogn: Impaired Insight: Limited Judgement: Limited Result Diagram: 09/23/16200109/23/16 2002 Mental Health Plan The patient is a 66-year-old, single white female with a reported history of bipolar disorder for decades that has been relatively well managed until recently. Her brother reported a rapid decline in her thought process and ability to attend to activities of daily living over the past week prior to admission. As a result, she has not been eating, not been drinking and when she came to the ED, was severely dehydrated and required IV fluids. Despite having care at the [facility] ED, she continued to be nonsensical in her thoughts, appearing to respond to internal stimuli and showing multiple symptoms of babar including distractibility, racing thoughts, poor sleep and poor appetite. There is a reference in the chart that her Seroquel was increased from 200 to 300. There were no clearly identifiable stressors. The patient was seen and detained by the [facility]. Despite having a diagnosis of bipolar disorder, she reports inter-episode symptoms but could not describe fully. The patient appears to be responding to treatment but is still quite anxious, moderately disorganized and confused. Patient requested increase in quetiapine to address residual symptoms. [place] AXIS I Bipolar mood disorder, manic, with psychotic features vs. schizoaffective disorder AXIS II Defer. AXIS III 1. Hypothyroidism. 2. Gastroesophageal reflux disease. 3. Fibromyalgia. 4. Glaucoma. AXIS IV Unknown. AXIS V Global Assessment of Functioning equal to 35. Medications Seroquel to 200 mgh.s. Lyrica 100 three times a day BuSpar 30 twice a day Klonopin 0.25 mg b.i.d prn Treatments 1. The patient is admitted to the inpatient unit and will be provided a safe and secure environment. 2. The patient is denying current active suicidality and is not in need of a one-to-one at this time. 3. The patient is encouraged to participate with group and milieu activities. 4. The patient will be seen by the treatment team on a daily basis to assess symptoms, side effects and response to treatment. 5. Continue current medication except add quetiapine 50mg daily 6. The patient will likely benefit from an LRO on disharge. 8. Anticipated length of stay is 3-5 days. Butch Wheeler MD September 29, 2016 22:21
--- NOTE | 2016-09-30 05:52 | NUR ---
Nursing notes: sports media/sleep Patient appears to be sleeping on safety checks during the night. No complaints voiced.
[2016-09-30] MEDS: Pantoprazole 40 mg ER24 Tablet PO SCH (08:04)
[2016-09-30] MEDS: BusPIRone 15 mg Dividose Tablet PO SCH ×2 (08:04→20:28)
[2016-09-30] MEDS: Tolterodine ER 2 mg ER24 Capsule PO SCH (08:18)
--- NOTE | 2016-09-30 12:00 | NUR ---
Nursing Day Shift- S- "I feel great now. I must have been really depressed at home, I was just isolating and eating oatmeal, then not sleeping well at night. I was taking all my meds! I need to talk to the DrEdgard about what happened to me. I really want to go home. My brother can make time to pick me up any time." O- Pt. reported broken sleep last PM. She stated the above and denied depression, anxiety, auditory, or visual hallucinations. She eat well at meals, and socialized with peers. A- Improved since admission. Compliant and future oriented. P- Possible discharge tomorrow, Pt. has medicets from [facility] in [place]. They deliver to her home.
[2016-09-30 12:18] VITALS: BP 122/78; PULSE 92; RESP 16
[2016-09-30] MEDS ORDERED: OMEP20CA11 PO (16:57)
[2016-09-30] MEDS ORDERED: LITH300T26 PO ×2 (16:57)
[2016-09-30] MEDS ORDERED: LEVO100T6 PO (16:57)
[2016-09-30] MEDS ORDERED: OXYB10TA6 PO (16:57)
[2016-09-30] MEDS ORDERED: LATA2.5D5 BOTH_EYES (16:57)
[2016-09-30] MEDS ORDERED: PRAV10TA2 PO (16:57)
[2016-09-30] MEDS ORDERED: DOCU-41 PO (16:57)
[2016-09-30] MEDS ORDERED: BUSP30TA2 PO (16:57)
[2016-09-30] MEDS ORDERED: CHOL200025 PO (16:57)
[2016-09-30] MEDS ORDERED: QUET25TA73 PO (16:57)
[2016-09-30] MEDS ORDERED: QUET200T PO (16:57)
[2016-09-30] MEDS ORDERED: SENN1TAB90 PO (16:57)
[2016-09-30] MEDS ORDERED: PREG100C PO (16:57)
--- NOTE | 2016-09-30 18:54 | NUR ---
[facility] Day Shift Pt maintained behavioral control throughout the shift. Pt affect appears mostly bright, occasionally anxious. Pt spends most of the shift resting in her room, sitting quietly/interacting with staff and peers in the dining room, and participating in group activities. Pt is appropriate with staff and peers when active on the unit. Pt participated actively in groups throughout the shift. Pt attended all meals and ate approx 80% 0f all meals.
--- NOTE | 2016-09-30 18:57 | NUR ---
Nurses Note Evening Patient has been pleasant,polite with clear linear thinking. She isolates at times due to unit noise and activity. Patient is eager to go home,her medications were faxed to [facility] to be prepared in medisets for her. Her appetite,hygiene and sleep are undisturbed. Will maintain q 15min. checks for safety and support. Addendum: 09/30/16 at 1901 by STEPHENIE KEYES RN Amended: Links added.
--- NOTE | 2016-09-30 18:59 | NUR ---
Parts Manager/Counselor: S/O: Patient slept 8+ hours last night as per staff. She denies S/I and H/I. She denies auditory and visual hallucinations. Depression is 5/10 and anxiety is 7/10. When asked her mood, patient stated, "Jumpy." A: Patient is cooperative, hopeful, looking forward to discharge, future oriented, fair insight, fair judgment. P: Follow the care plan, coordinate with out-patient providers.
--- NOTE | 2016-09-30 21:49 | PCM.PNPSY ---
Subjective Date of Service September 30, 2016 Subjective The patient reports sleeping less due to feeling agitated about the increased activity on the unit. The patient reports that her thinking is clear, but her mood is "down from being here." She denies improvement with stiffness with benztropine. On physical exam, cogwheeling unchanged. She denied side effects. Sleep: 8+ hours, patient reports less. Appetite: "good" Suicidal and homicidal ideation: denies Auditory hallucinations/Visual hallucinations: reports last on the day of admission. Other Psychotic Symptoms: thought processes more linear Anxiety: 12/07 Depression: 10/07 Current Medications Current Medications Buspirone HCl 30 mg BID PO Last administered on 09/30/16 20:28; Admin Dose 30 MG ; Start 09/29/16 at 08:30 Quetiapine Fumarate 50 mg DAILY PO Last administered on 09/30/16 08:05; Admin Dose 50 MG; Start 09/29/16 at 14:00 Mental Status Exam Appearance: Neat/well groomed Attitude: Pleasant, Cooperative Behavior: Overtly anxious Affect: Well Modulated/Appropriate, Restricted Mood: Anxious Thought Process/Associations: Goal Directed, Other Speech Production: Normal Speech Rate: Normal Speech Articulation: Normal Thought Content: Negativistic Danger to Self/Suicidal Ideati: None Danger to Others: None Hallucinations: Auditory (Denies), Visual (Denies) Consciousness: Hyper-vigilant Orientation: Person, Place, Date, Situation Memory: Grossly Intact Estimate Intellectual Function: Average Basis for IQ estimate: Awareness current events, Word use/vocabulary, Educational history Attention/Concentration & Cogn: Impaired Insight: Limited Judgement: Limited Mental Health Plan The patient is a 66-year-old, single white female with a reported history of bipolar disorder for decades that has been relatively well managed until recently. Her brother reported a rapid decline in her thought process and ability to attend to activities of daily living over the past week prior to admission. As a result, she has not been eating, not been drinking and when she came to the ED, was severely dehydrated and required IV fluids. Despite having care at the [facility] ED, she continued to be nonsensical in her thoughts, appearing to respond to internal stimuli and showing multiple symptoms of babar including distractibility, racing thoughts, poor sleep and poor appetite. There is a reference in the chart that her Seroquel was increased from 200 to 300. There were no clearly identifiable stressors. The patient was seen and detained by the [facility]. Despite having a diagnosis of bipolar disorder, she reports inter-episode symptoms but could not describe fully. The patient appears to be responding to increase of quetiapine and is less anxious with improved organization. [place] AXIS I Bipolar mood disorder, manic, with psychotic features vs. schizoaffective disorder AXIS II Defer. AXIS III 1. Hypothyroidism. 2. Gastroesophageal reflux disease. 3. Fibromyalgia. 4. Glaucoma. AXIS IV Unknown. AXIS V Global Assessment of Functioning equal to 35. Medications Seroquel 50mg daily and 200 mg nightly Lyrica 100 three times a day BuSpar 30 twice a day Klonopin 0.25 mg b.i.d prn Treatments 1. The patient is admitted to the inpatient unit and will be provided a safe and secure environment. 2. The patient is denying current active suicidality and is not in need of a one-to-one at this time. 3. The patient is encouraged to participate with group and milieu activities. 4. The patient will be seen by the treatment team on a daily basis to assess symptoms, side effects and response to treatment. 5. Continue current medication except discontinue benztropine. 6. The patient will likely benefit from an LRO on disharge. 8. Anticipated length of stay is 3-5 days. Butch Wheeler MD September 30, 2016 21:49 Butch Wheeler MD September 30, 2016 21:49
--- NOTE | 2016-10-01 05:18 | NUR ---
nursing, nights, 11-7 s/o- has appeared to sleep after midnight. up briefly to use the toilet. assessed q 15 minutes. a- no apparent distress. p- monitor behavior/emotional state, quality, times and amount of sleep, use and effect of medication. gary
[2016-10-01] MEDS: Tolterodine ER 2 mg ER24 Capsule PO SCH (08:41)
[2016-10-01] MEDS: Pantoprazole 40 mg ER24 Tablet PO SCH (08:41)
[2016-10-01] MEDS: BusPIRone 15 mg Dividose Tablet PO SCH (08:41)
--- NOTE | 2016-10-01 14:58 | NUR ---
[id number]. nurs. S/O: Pt reporting that she is looking forward to going home and anticipates that her brother will be here to pick her up at 1700. Pt completed safety plan appropriately and states she will use it when she gets home and recognized examples of warning signs that had occurred prev. and reports that she has a lot of things she wants to do when gets home, does not want to be dependent on brother and has plans to get out and enjoy driving and and looking at scenery. Pt reporting no adverse s/es to meds. Pt with direct eye contact, smiling affect and conversing freely with staff, pt noted to appear to be talking to self when others not around in TV area in am but did not appear uncomfortable. P: discharge at 1700 the todd.
--- NOTE | 2016-10-01 15:22 | PCM.DIMED ---
Discharge Instructions Date of Service October 01, 2016 Dates of Hospitalization Sep 23, 2016 at 18:17 Discharge Diagnosis Discharge Diagnosis AXIS I Bipolar mood disorder, manic, with psychotic features AXIS II Defer. AXIS III 1. Hypothyroidism. 2. Gastroesophageal reflux disease. 3. Fibromyalgia. 4. Glaucoma. AXIS IV Unknown. AXIS V Global Assessment of Functioning equal to 50. Test Results CBC Test 09/23/16 20:02 White Blood Count 12.1th/mm3 (3.8-10.1) Red Blood Count 4.36mil/mm3 (3.90-5.20) Hemoglobin 14.0g/dL (12.0-15.6) Hematocrit 41.6% (35.0-46.0) Mean Corpuscular Volume 95.4fL (81-100) Mean Corpuscular Hemoglobin 32.1pg (27.0-35.0) Mean Corpuscular Hemoglobin Concent 33.7% (32.0-37.0) Red Cell Distribution Width 14.1% (12.3-15.4) Platelet Count 284bil/L (150-400) CMP Test 09/23/16 20:02 Sodium Level 142mEq/L Potassium Level 3.8mEq/L Chloride Level 105mEq/L Carbon Dioxide Level 20mmol/L Blood Urea Nitrogen 15mg/dL Creatinine 0.87mg/dL Estimat Glomerular Filtration Rate 93mL/min Glucose Level 127mg/dL Calcium Level 9.6mg/dL Total Bilirubin 0.4mg/dL Aspartate Amino Transf (AST/SGOT) 13U/L Alanine Aminotransferase (ALT/SGPT) 11U/L Alkaline Phosphatase 94U/L Total Protein 6.9g/dL Albumin 4.5g/dL Diet No restrictions Activity No restrictions Patient Instructions Should you have any thoughts of harming yourself or others, please call the crisis line, your provider, 911, or go to the nearest Emergency Department. Do not change or discontinue your medications without discussing with your provider. You have been given a prescription for 30 days supply of your medication Follow-up plan Counselor Anatoliy on TBD [address] Funes on 10/12/16 @ 2:00pm [address] [place] [address] Butch Wheeler MD October 01, 2016 15:22
--- NOTE | 2016-10-01 16:43 | NUR ---
Glass Deposition Tender/Counselor: S: "I miss nancy dong.......my cat." O: Patient slept 5.5 hours last night as per staff. She denies S/I and H/I. She denies auditory and visual hallucinations. Depression is 2/10 and anxiety is 6/10. A: Patient is cooperative, hopeful, looking forward to discharge, future oriented, fair insight, fair judgment. P: Follow the care plan, coordinate with out-patient providers. Addendum: 10/01/16 at 1735 by ERIN BENZ [facility] Out-patient appointments: [facility] counselor, 10/02/16 at 10:00am and Dr. Funes, [facility] prescriber, 10/12/16 at 2:00pm.
--- NOTE | 2016-10-01 17:19 | NUR ---
discharge note [id number] pt discharged with brother, signed all paperwork and verbalized understanding of medications and appointments, talked about crisis line and given number if needed, belongings given to patient
--- NOTE | 2016-10-05 13:54 | PCM.DC.MED ---
Discharge Summary Date of Service October 01, 2016 Dates of Hospitalization Date of Hospital Admission Sep 23, 2016 at 18:17 Date of Discharge: October 01, 2016 Providers: Admitting Physician: Franklin Stroud MD Primary Care Physician: Phillip Rodrigues MD Attending Physician: Franklin Stroud MD Diagnosis at Time of Discharge Diagnosis at Time of Discharge AXIS I Bipolar mood disorder, manic, with psychotic features AXIS II Defer. AXIS III 1. Hypothyroidism. 2. Gastroesophageal reflux disease. 3. Fibromyalgia. 4. Glaucoma. AXIS IV Unknown. AXIS V Global Assessment of Functioning equal to 50. Brief History From Dr. Greco H& P from 09/24/16: IDENTIFICATION: The patient is a 66-year-old, single white female, currently living independently with her cat in an apartment. She has a car and drives. She is on Social Security disability for bipolar mood disorder. She has a supportive brother Naseem in the [place] area, and she lives in [place]. REASON FOR ADMISSION: Client transferred from [facility] ED on a 72-hour involuntary treatment hold for a rapid decline in her mental state with symptoms of babar and psychosis. HISTORY OF PRESENT ILLNESS: The patient presents for evaluation and treatment of babar and psychosis. I met with her for a 60-minute evaluation, and reviewed course and records kept by both [facility] in [place] and [facility] staff. Client's main issue is struggling with long-term bipolar mood disorder. The condition is chronic but she had a rapid decline per her brother over the past week with increasing symptoms of disorganized thought, paranoid thought and social isolation. She was refusing to eat and drink water and when she came to the emergency department, was severely dehydrated. At present, the condition is of a severe intensity manifesting with symptoms of distractibility, racing thoughts, poor sleep, paranoia, appearing to respond to internal stimuli, talking to herself and being unaware of the decline in her ability to attend to her activities of daily living. All the above symptoms Hospital Course [facility] Her quetiapine was reduced as it was thought that following the recent increase in medications, she had become increasing confused. Quetiapine was reduced to 200 mg nightly and Lyrica was continued at 100 three times a day. Buspirone was initially decreased to 10mg twice daily, but due to persistent anxiety, was returned to 30mg twice daily with some improvement in anxiety noted. The patient was provided low dose clonazepam 0.25mg for heart rate over 100, but rarely used it. The patient showed fairly rapid improvement but was demonstrating some residual cognitive impairment, so quetiapine 50mg daily was added with good result. The patient was noted to have mild cogwheeling and was prescribed benztropine 1mg twice daily with little efficacy and so was discontinued. The patient was agreeable to a 90 day LRO on discharge. Rather than have a separate bottle of medication added to her mediset (which may have increased the risk of non-adherence), her medisets were changed by the pharmacy prior to her discharge. At the time of discharge, the patient was reporting her mood was a little nervous about discharge and the LRO but was still looking forward to returning home to her apartment and cat. Sleep was reported as better, but not enough," 5.5+ hours per staff. And appetite was reported as good. Her anxiety was reported as 6/10 and depression as 2/10. She denied auditory or visual hallucinations, paranoia, and any thought, intent or plan of hurting herself or others. She denied medication side effects. She was oriented to September,, [facility]. Exam Vital Signs (Last) Date Time Temp Pulse Resp B/P Pulse Ox O2 Delivery O2 Flow Rate FiO2 09/30/16 12:18 36.4 92 16 122/78 Exam Discharge Mental Status Exam Appearance: Neat/well groomed Attitude: Pleasant, Cooperative Behavior: Overtly anxious Affect: Well Modulated/Appropriate, Restricted Mood: Anxious Thought Process/Associations: Goal Directed, Other Speech Production: Normal Speech Rate: Normal Speech Articulation: Normal Thought Content: Negativistic Danger to Self/Suicidal Ideation: None Danger to Others: None Hallucinations: Auditory (Denies), Visual (Denies) Consciousness: Hyper-vigilant Orientation: Person, Place, Date, Situation Memory: Grossly Intact Estimate Intellectual Function: Average Basis for IQ estimate: Awareness current events, Word use/vocabulary, Educational history Attention/Concentration & Cognition: Fair Insight: Fair Judgement: Fair AIMS: negative Physical exam: 1+ cogwheeling Test 09/23/16 20:02 09/28/16 20:35 White Blood Count 12.1th/mm3 (3.8-10.1) Red Blood Count 4.36mil/mm3 (3.90-5.20) Hemoglobin 14.0g/dL (12.0-15.6) Hematocrit 41.6% (35.0-46.0) Mean Corpuscular Volume 95.4fL (81-100) Mean Corpuscular Hemoglobin 32.1pg (27.0-35.0) Mean Corpuscular Hemoglobin Concent 33.7% (32.0-37.0) Red Cell Distribution Width 14.1% (12.3-15.4) Platelet Count 284bil/L (150-400) Sodium Level 142mEq/L (134-144) Potassium Level 3.8mEq/L (3.5-5.2) Chloride Level 105mEq/L (97-108) Carbon Dioxide Level 20mmol/L (18-29) Blood Urea Nitrogen 15mg/dL (8-27) Creatinine 0.87mg/dL (0.57-1.00) Estimat Glomerular Filtration Rate 93mL/min (>59) Glucose Level 127mg/dL (60-99) Calcium Level 9.6mg/dL (8.5-10.1) Total Bilirubin 0.4mg/dL (0.0-1.2) Aspartate Amino Transf (AST/SGOT) 13U/L (0-50) Alanine Aminotransferase (ALT/SGPT) 11U/L (0-32) Alkaline Phosphatase 94U/L (25-165) Total Protein 6.9g/dL (6.4-8.4) Albumin 4.5g/dL (3.4-5.0) Urine Color Straw (YELLOW) Urine Appearance Clear (CLEAR,HAZY) Urine pH 7.0 (5.0-8.0) Urine Specific [place] 1.020 (1.003-1.035) Urine Protein Negativemg/dL (NEG,TRACE) Urine Glucose (UA) Negativemg/dL (NEGATIVE) Urine Ketones Negativemg/dL (NEGATIVE) Urine Occult Blood Negative (NEGATIVE) Urine Nitrite Negative (NEGATIVE) Urine Bilirubin Negative (NEGATIVE) Urine Urobilinogen Normalmg/dL (NORMAL) Urine Leukocyte Esterase Negative (NEGATIVE) Urine RBC 0-2/hpf (0-2) Urine WBC 0-5/hpf (0-5) Urine Epithelial Cells None/hpf (NONE-MOD) Urine Crystals None seen (NONE SEEN) Urine Bacteria Few/hpf (NONE-FEW) Urine Hyaline Casts None/lpf (NONE) Urine Granular Casts None seen (NONE SEEN) Urine Waxy Casts None seen (NONE SEEN) Urine Red Blood Cell Casts None seen (NONE SEEN) Urine White Blood Cell Casts None seen (NONE SEEN) Urine Mucus None seen (None Seen) Urine Trichomonas None seen (NONE SEEN) Urine Yeast None (NONE SEEN) Urinalysis Comment None Urine Culture Reflexed Not indicated Discharge Medications Discharge Medications Buspirone (Buspirone) 30 Mg Tablet 30 MG PO BID Prescribed by: BUTCH WHEELER MD Cholecalciferol (Vitamin D3) (Vitamin D3) 2,000 Unit Tablet 2,000 UNIT PO DAILY Prescribed by: BUTCH WHEELER MD Latanoprost (Xalatan) 2.5 Ml Drops 1 DROP BOTH_EYES HS Prescribed by: BUTCH WHEELER MD Levothyroxine (Levothyroxine) 100 Mcg Tablet 100 MCG PO DAILY Prescribed by: BUTCH WHEELER MD [place] Carbonate (Lithobid) 300 Mg Tablet.er 300 MG PO MORNING Prescribed by: BUTCH WHEELER MD [place] Carbonate (Lithobid) 300 Mg Tablet.er 450 MG PO HS Prescribed by: BUTCH WHEELER MD Omeprazole (Omeprazole) 20 Mg Capsule.dr 20 MG PO BID Prescribed by: BUTCH WHEELER MD Oxybutynin Chloride ER (Ditropan XL) 10 Mg Tab.er.24 10 MG PO DAILY Prescribed by: BUTCH WHEELER MD Pravastatin (Pravastatin) 10 Mg Tablet 10 MG PO HS Prescribed by: BUTCH WHEELER MD Pregabalin (Lyrica) 100 Mg Capsule 100 MG PO TID Prescribed by: BUTCH WHEELER MD Quetiapine Fumarate (Seroquel) 200 Mg Tablet 200 MG PO HS Prescribed by: BUTCH WHEELER MD Quetiapine Fumarate (Quetiapine Fumarate) 25 Mg Tablet 50 MG PO DAILY Prescribed by: BUTCH WHEELER MD Sennosides/Docusate Sodium (Senna-Docusate Sodium Tablet) 1 Each Tablet 1 EACH PO BID Prescribed by: BUTCH WHEELER MD As needed Docusate Sodium (Colace) 100 Mg Capsule 100 MG PO DAILY PRN PRN For Constipation Prescribed by: BUTCH WHEELER MD Followup Plan Disposition: No indication for further assisted at this time, patient was released from hold on a 90 day less restrictive order. The patient verbally consented to take the prescribed medications. The patient verbally expressed understanding of the risks, benefits, alternative treatment options, and risks of not taking the prescribed medication. The patient verbally expressed understanding of the medication instructions, that she will adhere to the prescribed medication, and that she will go to all aftercare scheduled appointments. Follow-up plan Counselor Anatoliy on TBD [address] Funes on 10/12/16 @ 2:00pm [address] [address] Discharge Diet: No restrictions Discharge Activity: No restrictions Patient Instructions Should you have any thoughts of harming yourself or others, please call the crisis line, your provider, 911, or go to the nearest Emergency Department. Do not change or discontinue your medications without discussing with your provider. You have been given a prescription for 30 days supply of your medication Butch Wheeler MD October 01, 2016 23:51
== END 2016-10-01 16:56 | disposition home or self-care (01) | DRG 885 ==
LOC: MHC 18:17
PROVIDERS: ADMIT Psychiatry & Neurology Psychiatry; ATTEND Psychiatry & Neurology Psychiatry
DX: F31.2 Bipolar disorder, current episode manic severe with psychotic features (principal); E86.0 Dehydration; E03.9 Hypothyroidism, unspecified; K21.9 Gastro-esophageal reflux disease without esophagitis; M79.7 Fibromyalgia; H40.9 Unspecified glaucoma